=== PATIENT | male | born 1950 | race Caucasian/White ===

== ENCOUNTER 2018-03-19 11:30 | Inpatient (IN) | payer MEDICARE, OTHER ==
[2018-03-19] MEDS ORDERED: DILTIAZEM 25 MG INJ (11:56)
[2018-03-19] MEDS: DILTIAZEM 25 MG INJ IV ×2 (12:03→12:16)
[2018-03-19] MEDS: SOD CHLORIDE 0.9% 1,000 ML IV (12:03)
[2018-03-19 12:09] LABS: ADD MAN DIFF? NO
[2018-03-19 12:11] LABS: BASOPHIL # 0.1 10^3/ul (0.0-0.1); BASOPHILS % 0.5 % (0.0-2.0); EOSINOPHILS % 0.4 % (0.0-7.0); HEMATOCRIT 42.5 % (42.0-52.0); HEMOGLOBIN 14.1 g/dl (14.0-18.0); LYMPHOCYTES # 1.3 10^3/ul (0.8-2.9); LYMPHOCYTES % 12.5 % (15.0-51.0); MEAN CORPUSCULAR HGB CONC 33.2 g/dl (32.0-37.0); MEAN CORPUSCULAR VOLUME 90.4 fl (82.0-101.0); MEAN PLATELET VOLUME 10.3 fl (7.4-10.4); MONOCYTE # 1.1 10^3/ul (0.3-0.9); MONOCYTES % 10.4 % (0.0-11.0); NEUTROPHILS % 75.8 % (39.0-77.0); PLATELET COUNT 279 10^3/UL (140-415); RED CELL DISTRIBUTION WIDTH 14.1 % (11.5-14.5)
[2018-03-19 12:11] LABS: WHITE BLOOD COUNT 10.6 10^3/ul (4.8-10.8)
[2018-03-19] MEDS ORDERED: ONDANSETRON 4 MG INJ IV (12:30)
[2018-03-19] MEDS ORDERED: ACETAMINOPHEN 325 MG TAB PO (12:30)
[2018-03-19] MEDS ORDERED: ONDANSETRON 4 MG TAB PO (12:30)
[2018-03-19] MEDS ORDERED: ZOLPIDEM 5 MG TAB PO (12:30)
[2018-03-19] MEDS ORDERED: NACL 0.9% 3 ML SYG IV (12:30)
[2018-03-19] MEDS ORDERED: DOCUSATE SODIUM 100 MG CAP PO (12:30)
[2018-03-19 12:31] LABS: ANION GAP 11 (5-13); BLOOD UREA NITROGEN 21 mg/dl (7-20); CALCIUM 9.3 mg/dl (8.4-10.2); CARBON DIOXIDE 23 mmol/L (21-31); CHLORIDE 107 mmol/L (97-110); CREATININE 1.06 mg/dl (0.61-1.24); Estimated GFR > 60 mL/min (>60); GLUCOSE 112 mg/dl (70-220); POTASSIUM 4.7 mmol/L (3.5-5.1); SODIUM 141 mmol/L (135-144)
[2018-03-19 12:42] LABS: INR 0.91; PROTIME 12.4 Sec (11.9-14.9)
[2018-03-19 12:43] LABS: PARTIAL THROMBOPLASTIN TIME 28.2 Sec (23.0-35.0)
[2018-03-19] MEDS: DILTIAZEM 30 MG TAB PO (13:00)
[2018-03-19] MEDS: DILTIAZEM-D5W 125MG/125ML DRIP 125 ML IV (13:28)
[2018-03-19] MEDS: ASPIRIN (EC) 325 MG TAB PO (17:36)
[2018-03-19] MEDS: METOPROLOL (XL) 25 MG TAB PO (17:36)
[2018-03-19 18:55] LABS: CREATINE KINASE 73 IU/L (23-200)
[2018-03-19 19:08] LABS: CK INDEX 1.3; CK-MB 0.96 ng/ml (0.0-2.4); TROPONIN-I 0.024 ng/ml (0.000-0.120)
[2018-03-20] MEDS ORDERED: DILTIAZEM-D5W 125MG/125ML DRIP 125 ML IV (00:30)
[2018-03-20] MEDS: DILTIAZEM-D5W 125MG/125ML DRIP 125 ML IV ×3 (01:04→20:59)
[2018-03-20 01:15] LABS: CREATINE KINASE 67 IU/L (23-200)
[2018-03-20 01:29] LABS: CK INDEX 1.1; CK-MB 0.74 ng/ml (0.0-2.4); TROPONIN-I 0.021 ng/ml (0.000-0.120)
[2018-03-20 06:53] LABS: ADD MAN DIFF? NO
[2018-03-20 06:57] LABS: BASOPHIL # 0.1 10^3/ul (0.0-0.1); BASOPHILS % 0.6 % (0.0-2.0); EOSINOPHILS # 0.1 10^3/ul (0.0-0.5); EOSINOPHILS % 1.1 % (0.0-7.0); HEMATOCRIT 36.7 % (42.0-52.0); HEMOGLOBIN 11.9 g/dl (14.0-18.0); LYMPHOCYTES # 1.3 10^3/ul (0.8-2.9); LYMPHOCYTES % 15.1 % (15.0-51.0); MEAN CORPUSCULAR HEMOGLOBIN 29.8 pg (29.0-33.0); MEAN CORPUSCULAR HGB CONC 32.4 g/dl (32.0-37.0); MEAN PLATELET VOLUME 10.5 fl (7.4-10.4); MONOCYTE # 0.9 10^3/ul (0.3-0.9); MONOCYTES % 10.7 % (0.0-11.0); NEUTROPHILS % 72.1 % (39.0-77.0); PLATELET COUNT 236 10^3/UL (140-415); RED BLOOD COUNT 3.99 10^6/ul (4.70-6.10); RED CELL DISTRIBUTION WIDTH 14.2 % (11.5-14.5)
[2018-03-20 06:57] LABS: WHITE BLOOD COUNT 8.4 10^3/ul (4.8-10.8)
[2018-03-20 07:23] LABS: HEMOGLOBIN A1C 5.5 % (0-5.9)
[2018-03-20 07:50] LABS: ALANINE AMINOTRANSFERASE 60 IU/L (13-69); ALBUMIN 3.5 g/dl (3.3-4.9); ALBUMIN/GLOBULIN RATIO 1.16; ALKALINE PHOSPHATASE 56 IU/L (42-121); ANION GAP 11 (5-13); ASPARTATE AMINO TRANSFERASE 34 IU/L (15-46); BILIRUBIN,INDIRECT 0.5 mg/dl (0-1.1); BILIRUBIN,TOTAL 0.5 mg/dl (0.2-1.3); BLOOD UREA NITROGEN 20 mg/dl (7-20); CALCIUM 8.7 mg/dl (8.4-10.2); CARBON DIOXIDE 25 mmol/L (21-31); CHLORIDE 105 mmol/L (97-110); Estimated GFR > 60 mL/min (>60); GLUCOSE 109 mg/dl (70-220); PHOSPHORUS 3.3 mg/dl (2.5-4.9); POTASSIUM 4.3 mmol/L (3.5-5.1); SODIUM 141 mmol/L (135-144); TOTAL PROTEIN 6.5 g/dl (6.1-8.1)
[2018-03-20] MEDS: ASPIRIN (EC) 81 MG TAB PO (08:46)
[2018-03-20] MEDS: METOPROLOL (XL) 50 MG TAB PO (09:21)
[2018-03-20] MEDS: DIGOXIN 500 MCG INJ IV ×3 (09:21→18:29)
[2018-03-20] MEDS: ACETAMINOPHEN 325 MG TAB PO (15:25)
[2018-03-20] MEDS: MAGNESIUM SULFATE 2 GM/50 ML 50 ML IVPB (18:29)
[2018-03-20] MEDS: APIXABAN 5 MG TABLET PO (21:27)
[2018-03-20] MEDS: METOPROLOL (XL) 100 MG TAB PO (21:28)
[2018-03-21] MEDS: DIGOXIN 500 MCG INJ IV (00:38)
[2018-03-21] MEDS: ACETAMINOPHEN 325 MG TAB PO ×2 (00:43→20:01)
[2018-03-21] MEDS: DILTIAZEM-D5W 125MG/125ML DRIP 125 ML IV ×3 (01:18→09:10)
[2018-03-21 07:01] LABS: ADD MAN DIFF? NO
[2018-03-21 07:03] LABS: BASOPHILS % 0.3 % (0.0-2.0); EOSINOPHILS # 0.1 10^3/ul (0.0-0.5); EOSINOPHILS % 0.6 % (0.0-7.0); HEMATOCRIT 36.8 % (42.0-52.0); HEMOGLOBIN 11.7 g/dl (14.0-18.0); LYMPHOCYTES # 1.3 10^3/ul (0.8-2.9); LYMPHOCYTES % 12.4 % (15.0-51.0); MEAN CORPUSCULAR HEMOGLOBIN 29.1 pg (29.0-33.0); MEAN CORPUSCULAR HGB CONC 31.8 g/dl (32.0-37.0); MEAN CORPUSCULAR VOLUME 91.5 fl (82.0-101.0); MEAN PLATELET VOLUME 10.6 fl (7.4-10.4); MONOCYTE # 1.1 10^3/ul (0.3-0.9); MONOCYTES % 10.4 % (0.0-11.0); NEUTROPHIL # 8.2 10^3/ul (1.6-7.5); NEUTROPHILS % 75.9 % (39.0-77.0); PLATELET COUNT 229 10^3/UL (140-415); RED BLOOD COUNT 4.02 10^6/ul (4.70-6.10)
[2018-03-21 07:03] LABS: WHITE BLOOD COUNT 10.8 10^3/ul (4.8-10.8)
[2018-03-21 07:23] LABS: ANION GAP 8 (5-13); BLOOD UREA NITROGEN 17 mg/dl (7-20); CALCIUM 8.8 mg/dl (8.4-10.2); CARBON DIOXIDE 26 mmol/L (21-31); CHLORIDE 105 mmol/L (97-110); CREATININE 0.97 mg/dl (0.61-1.24); Estimated GFR > 60 mL/min (>60); GLUCOSE 108 mg/dl (70-220); MAGNESIUM 2.2 mg/dl (1.7-2.5); POTASSIUM 4.3 mmol/L (3.5-5.1); SODIUM 139 mmol/L (135-144)
[2018-03-21 07:31] LABS: DIGOXIN 1.1 ng/ml (1.0-2.0)
[2018-03-21] MEDS: METOPROLOL (XL) 100 MG TAB PO ×2 (08:02→20:01)
[2018-03-21] MEDS: APIXABAN 5 MG TABLET PO ×2 (08:02→20:01)
[2018-03-21] MEDS: DILTIAZEM (CD) 240 MG CAP PO (09:13)
[2018-03-21] MEDS: DIGOXIN 0.25 MG TAB PO (09:13)
[2018-03-22] MEDS: METOPROLOL (XL) 100 MG TAB PO (08:24)
[2018-03-22] MEDS: APIXABAN 5 MG TABLET PO (08:24)
[2018-03-22] MEDS: DILTIAZEM (CD) 240 MG CAP PO (08:25)
[2018-03-22] MEDS: DIGOXIN 0.25 MG TAB PO ×2 (08:25→12:31)
[2018-03-22] MEDS: DIGOXIN 500 MCG INJ IV (09:58)
== END 2018-03-22 14:13 | disposition home or self-care (01) | DRG 310 ==
LOC: E/R 11:30 → TEL 15:52
DX: I48.0 Paroxysmal atrial fibrillation (principal); E88.81 Metabolic syndrome and other insulin resistance; G47.30 Sleep apnea, unspecified; J45.990 Exercise induced bronchospasm; M25.511 Pain in right shoulder; E55.9 Vitamin D deficiency, unspecified; R73.9 Hyperglycemia, unspecified; Z79.01 Long term (current) use of anticoagulants; Z87.891 Personal history of nicotine dependence; Z98.890 Other specified postprocedural states
CPT/HCPCS: 36415; 71045; 80048; 80053; 80162; 82550; 82553; 83036; 83735; 84100; 84439; 84443; 84484; 85025; 85610; 85730; 93005; 93306; 93970; 96374; 99291-25